=== PATIENT | male | born 2000 | race Caucasian/White ===

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

== ENCOUNTER 2023-02-13 12:27 | Emergency (ER) | payer MEDICAID, OTHER ==
[~2023-02-13] VITALS: Ht 167.6 cm; Wt 78.5 kg
[~2023-02-13 12:27] MED LIST changes: +CLIN150C17 PO; +IBUP-1022 PO
[2023-02-13] MEDS ORDERED: IBUP200C90 PO (12:36)
[2023-02-13 13:22] LABS: BASO % 0.2 % (0.0-1.0); EOS # 0.1 10^3/uL (0.0-0.5); EOS % 0.4 % (0.0-3.0); HEMATOCRIT 47.5 % (42.0-52.0); HEMOGLOBIN 16.7 g/dl (13.5-17.5); LYMPH # 1.5 10^3/uL (1.5-5.0); LYMPH % 12.5 % (24.0-44.0); MEAN CORPUSCULAR HEMOGLOBIN 31.6 pg (27.0-33.0); MEAN CORPUSCULAR HGB CONC 35.2 g/dl (32.0-36.5); MONO # 1.1 10^3/uL (0.0-0.8); MONO % 9.4 % (2.0-8.0); NEUTROPHILS # 9.1 10^3/uL (1.5-8.5); NEUTROPHILS % 77.2 % (36.0-66.0); PLATELET COUNT, AUTOMATED 191 10^3/uL (150-450); RED BLOOD COUNT 5.28 10^6/uL (4.30-6.10); WHITE BLOOD COUNT 11.8 10^3/uL (4.0-10.0)
[2023-02-13 13:40] LABS: ERYTHROCYTE SEDIMENTATION RATE 13 mm/hr (0-15)
[2023-02-13] MEDS ORDERED: ISOVUE-370 76% 100ML VIAL As Ordered ONE (13:47)
[2023-02-13] MEDS ORDERED: ACET1TAB55 PO (15:19)
[2023-02-13] MEDS ORDERED: ACET-716 PO (15:19)
[2023-02-13] MEDS ORDERED: IBUP80TA PO (15:19)
[2023-02-13] MEDS ORDERED: AMOX875T2 PO (15:19)
[2023-02-13 15:35] VITALS: BP 129/67; TEMP 98.1; O2SAT 100
== END 2023-02-13 15:37 | disposition home or self-care (01) ==
LOC: M ED 12:27
DX: K04.6 Periapical abscess with sinus (principal); M06.9 Rheumatoid arthritis, unspecified; F17.200 Nicotine dependence, unspecified, uncomplicated; F12.10 Cannabis abuse, uncomplicated; Z79.1 Long term (current) use of non-steroidal anti-inflammatories (NSAID); Z79.2 Long term (current) use of antibiotics
CPT/HCPCS: 36415; 70487; 80047; 85025; 85652; 86140; 99284; Q9967